=== PATIENT | female | born 1960 | race Caucasian/White ===

== ENCOUNTER 2022-04-21 16:56 | Emergency (ER) | payer MEDICAID ==
[~2022-04-21] VITALS: Ht 162.6 cm; Wt 52.2 kg
[~2022-04-21 16:56] MED LIST: CELE400C PO; CYCL10TA9 PO; FLUO40CA49 PO; LORA1TAB PO; RABE20TA18 PO; RANI150T8 PO; TRAM200T36 PO; TRAZ-257 PO
--- NOTE | 2022-04-21 19:06 | NUR ---
Patient is sitting comfortably on a chair in the ER waiting room, pending available ER nurse & ER room. Nursing SBAR given to charge entry Adrian.
--- NOTE | 2022-04-21 19:58 | NUR ---
PATIENT PLACED IN ROOM 5B AT THIS TIME.
[2022-04-21] MEDS ORDERED: KETOROLAC TROMETHAMINE 30 MG INJ IM ONE (21:00)
[2022-04-21] MEDS ORDERED: KETOROLAC TROMETHAMINE 30 MG INJ ONE (21:07)
[2022-04-21] MEDS ORDERED: CYCL10TA9 PO (21:29)
[2022-04-21] MEDS ORDERED: NAPR-1164 PO (21:29)
[2022-04-21 21:36] VITALS: BP 145/89
--- NOTE | 2022-04-21 21:36 | NUR ---
Patient discharged to home in stable condition. Written and verbal after care instructions given. Patient verbalizes understanding of instructions. Stressed follow up or return to ER for worsening s/s.
== END 2022-04-21 21:36 | disposition home or self-care (01) ==
LOC: ER 17:00
DX: S13.9XXA Sprain of joints and ligaments of unspecified parts of neck, initial encounter (principal); S39.012A Strain of muscle, fascia and tendon of lower back, initial encounter; V49.69XA Unspecified car occupant injured in collision with other motor vehicles in traffic accident, initial encounter; Y92.414 Local residential or business street as the place of occurrence of the external cause; M32.9 Systemic lupus erythematosus, unspecified; R03.0 Elevated blood-pressure reading, without diagnosis of hypertension; K58.9 Irritable bowel syndrome, unspecified; Z85.43 Personal history of malignant neoplasm of ovary; Z88.6 Allergy status to analgesic agent; Z88.0 Allergy status to penicillin
CPT/HCPCS: 99284; 71101; 72040; 96372; J1885; A4663